=== PATIENT | male | born 1935 | race Caucasian/White ===

== ENCOUNTER 2016-07-25 07:19 | Emergency (ER) | payer MEDICARE, BC ==
[2016-07-25 07:40] VITALS: BP 154/125
--- NOTE | 2016-07-25 08:31 | EDM.PDOC ---
ED HPI GENERAL MEDICAL PROBLEM - General Chief Complaint: Genitourinary Problem Stated Complaint: UTI? Time Seen by Provider: 07/25/16 08:00 Source of Information: Reports: Patient, Family, RN notes reviewed History Limitations: Reports: No Limitations - History of Present Illness INITIAL COMMENTS - FREE TEXT/NARRATIVE: 80-year-old gentleman presents emergency department day complaint of fatigue and concern for urinary tract infection, he has a history of bladder trauma when he was young self caths himself multiple times a day does have a history of frequent urinary tract infections, last urinary tract infection was about 6 weeks ago he was on Bactrim at that time. He has felt chilled denies any other symptoms - Related Data Allergies Allergy/AdvReac Type Severity Reaction Status Date / Time No Known Allergies Allergy Verified 07/25/16 07:40 Home Meds: Home Meds Albuterol [Ventolin HFA] 1 puff INH ASDIRECTED 07/25/16 [History] Aspirin 1 tab PO BEDTIME 07/25/16 [History] Ciprofloxacin HCl [Cipro] 500 mg PO BID #14 tablet 07/25/16 [Rx] Cranberry 1 cap PO DAILY 07/25/16 [History] Fluticasone Propionate [Flovent HFA] 2 puff INH BEDTIME 07/25/16 [History] Losartan [Cozaar] 1 tab PO DAILY 07/25/16 [History] Past Medical History HEENT History: Reports: Cataract, Impaired vision Cardiovascular History: Reports: Hypertension Respiratory History: Reports: Asthma, COPD Genitourinary History: Reports: UTI, recurrent Musculoskeletal History: Reports: Fracture Oncologic (Cancer) History: Reports: Other (see below) Other Oncologic History: skin cancer - Past Surgical History HEENT Surgical History: Reports: Cataract surgery GI Surgical History: Reports: Colostomy, Hernia repair/other, Other (see below) Other GI Surgeries/Procedures: surgery to abdomen and bladder after traumatic accident. Other Male Surgeries/Procedures: bladder issues from traumatic injury Social & Family History - Tobacco Use Smoking Status *Q: Former Smoker Used Tobacco, but Quit: No Tobacco Use Comment: uses smokeless tobacco now - Alcohol Use Days Per Week of Alcohol Use: 7 Number of Drinks Per Day: 2 Total Drinks Per Week: 14 - Recreational Drug Use Recreational Drug Use: No ED ROS GENERAL - Review of Systems Review Of Systems: See Below Constitutional: Reports: Chills HEENT: Reports: No Symptoms Respiratory: Reports: No Symptoms Cardiovascular: Reports: No Symptoms GI/Abdominal: Reports: No Symptoms : Reports: No Symptoms Musculoskeletal: Reports: No Symptoms Skin: Reports: No Symptoms ED EXAM, RENAL/ - Physical Exam Exam: See Below Exam Limited By: No Limitations General Appearance: Alert, WD/WN, No Apparent Distress Respiratory/Chest: No Respiratory Distress GI/Abdominal: Soft, Non-Tender, No Distention, No Mass Back Exam: Full Range of Motion. No: CVA Tenderness (R), CVA Tenderness (L) Course - Vital Signs Last Recorded V/S: Last Vital Signs Temp 97.1 F 07/25/16 07:36 Pulse 71 07/25/16 07:36 Resp 16 07/25/16 07:36 BP 154/125 H 07/25/16 07:36 Pulse Ox 97 07/25/16 07:36 - Orders/Labs/Meds Orders: Active Orders 24 hr Category Date Time Status CULTURE URINE [RM] Urgent Lab 07/25/16 08:21 Uncollected Labs: Laboratory Tests 07/25/16 Range/Units 08:06 Urine Color Yellow Urine Appearance Cloudy Urine pH 6.0 (4.5-8.0) Ur Specific [place] 1.015 (1.008-1.030) Urine Protein Negative (NEGATIVE) mg/dL Urine Glucose (UA) Normal (NEGATIVE) mg/dL Urine Ketones Negative (NEGATIVE) mg/dL Urine Occult Blood Moderate (NEGATIVE) Urine Nitrite Positive H (NEGAITVE) Urine Bilirubin Negative (NEGATIVE) Urine Urobilinogen 4 (NORMAL) mg/dL Ur Leukocyte Esterase Large (NEGATIVE) Urine RBC 0-5 (0-5) Urine WBC Packed H (0-5) Ur Epithelial Cells Few Amorphous Sediment Not seen Urine Bacteria Many Urine Mucus Not seen Departure - Departure Time of Disposition: 08:31 Disposition: Home, Self-Care 01 Condition: good Clinical Impression: UTI, Urinary tract infectious disease - Discharge Information Prescriptions: Ciprofloxacin HCl [Cipro] 500 mg PO BID #14 tablet Forms: ED Department Discharge Additional Instructions: Take full course of antibiotics, Please followup with your primary care provider in 5-7 days if not better, please call return to the emergency department with worsening of symptoms. - My Orders Last 24 Hours: My Active Orders 07/25/16 08:21 CULTURE URINE [RM] Urgent - Assessment/Plan Last 24 Hours: My Active Orders 07/25/16 08:21 CULTURE URINE [RM] Urgent Plan: Assessment Acuity = acute Site and laterality = complicated urinary tract infection in a patient with known history of bladder trauma and recurrent urinary tract infections Etiology = suspicious for bacterial cause Manifestations = chills Location of injury = home Lab values = urinalysis is positive for nitrates and packed WBCs consistent with pyuria cultures pending Plan Elected to treat with ciprofloxacin 500 mg by mouth twice a day x7 days followup with primary care in 5-7 days if no improvement Patient was in agreement with the plan all questions were answered, they were instructed to return to the emergency department or call for worsening symptoms. This note was dictated using [employer] voice recognition software please call with any questions.
== END 2016-07-25 08:45 | disposition home or self-care (01) ==
LOC: JP.ED 07:19
DX: N39.0 Urinary tract infection, site not specified (principal); I10 Essential (primary) hypertension; J45.909 Unspecified asthma, uncomplicated; J44.9 Chronic obstructive pulmonary disease, unspecified; Z85.828 Personal history of other malignant neoplasm of skin; Z98.49 Cataract extraction status, unspecified eye; Z98.890 Other specified postprocedural states; Z87.891 Personal history of nicotine dependence; Z79.82 Long term (current) use of aspirin; Z79.899 Other long term (current) drug therapy
CPT/HCPCS: 81001; 87086; 87088; 87186; 99283; 99284

== ENCOUNTER 2018-08-19 16:24 | Inpatient (IN) | payer MEDICARE, BC ==
[2018-08-19] MEDS ORDERED: Lactated Ringers 1,000 ML IV ONE (17:07)
[2018-08-19] MEDS ORDERED: Acetaminophen 500 MG Tab PO ONE (17:10)
--- NOTE | 2018-08-19 17:20 | EDM.PDOC ---
ED HPI GENERAL MEDICAL PROBLEM - General Chief Complaint: Fever Stated Complaint: possible uti Time Seen by Provider: 08/19/18 17:05 Source of Information: Reports: Patient, Family, RN History Limitations: Reports: Other (minimal old records) - History of Present Illness INITIAL COMMENTS - FREE TEXT/NARRATIVE: 82 yo male who does self-catheterizations presents with his for onset today of fever, weakness, and some sleepiness. He suspect he has a UTI as he has had in the past. No self tx before arrival. No pain. Has an open wound to his low central sacral area that opened up recently and he has been treating by dressing changes. He has no new or worsening pain to this sacral area. Onset: Today Onset Date: 08/19/18 Duration: Hour(s):, Constant Location: Reports: Generalized Quality: Reports: Other (no pain) Severity: Moderate Improves with: Reports: None Worsens with: Reports: Other (? time) Context: Reports: Other (See HPI) Associated Symptoms: Reports: Fever/Chills, Weakness. 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 (see below) (none) - Related Data Allergies Allergy/AdvReac Type Severity Reaction Status Date / Time No Known Allergies Allergy Verified 07/25/16 07:40 Home Meds: Home Meds Albuterol [Ventolin HFA] 1 puff INH ASDIRECTED 07/25/16 [History] Aspirin 1 tab PO BEDTIME 07/25/16 [History] Cranberry 1 cap PO DAILY 07/25/16 [History] Fluticasone Propionate [Flovent HFA] 2 puff INH BEDTIME 07/25/16 [History] Losartan [Cozaar] 1 tab PO DAILY 07/25/16 [History] Diltiazem HCl [Diltiazem 24Hr ER] 120 mg PO DAILY 08/19/18 [History] Past Medical History HEENT History: Reports: Cataract, Impaired Vision, Macular Degeneration Cardiovascular History: Reports: Hypertension Respiratory History: Reports: Asthma, COPD Genitourinary History: Reports: UTI, Recurrent Musculoskeletal History: Reports: Fracture Oncologic (Cancer) History: Reports: Other (See Below) Other Oncologic History: skin cancer - Past Surgical History HEENT Surgical History: Reports: Cataract Surgery GI Surgical History: Reports: Colostomy, Hernia Repair/Other, Other (See Below) Social & Family History - Tobacco Use Smoking Status *Q: Never Smoker - Caffeine Use Caffeine Use: Reports: Coffee - Alcohol Use Days Per Week of Alcohol Use: 7 Number of Drinks Per Day: 3 Total Drinks Per Week: 21 - Recreational Drug Use Recreational Drug Use: No ED ROS GENERAL - Review of Systems Review Of Systems: See Below Constitutional: Reports: Fever, Chills, Malaise, Weakness, Fatigue HEENT: Reports: No Symptoms Respiratory: Reports: No Symptoms Cardiovascular: Reports: No Symptoms Endocrine: Reports: No Symptoms GI/Abdominal: Reports: No Symptoms : Reports: No Symptoms Musculoskeletal: Reports: No Symptoms Skin: Reports: Wound (mid sacral area posteriorly-not new) Neurological: Reports: No Symptoms ED EXAM, SEPSIS - Physical Exam Exam: See Below Exam Limited By: No Limitations General Appearance: Alert, WD/WN, No Apparent Distress Eye Exam: Bilateral Eye: Normal Inspection Ears: Normal External Exam, Normal Canal, Hearing Grossly Normal, Normal TMs Nose: Normal Inspection, No Blood Throat/Mouth: Normal Inspection, Normal Lips, Normal Oropharynx, Normal Voice, No Airway Compromise Head: Atraumatic, Normocephalic Neck: Normal Inspection Respiratory/Chest: No Respiratory Distress, Lungs Clear, Normal Breath Sounds, No Accessory Muscle Use Cardiovascular: Regular Rate, Rhythm, No Edema, Tachycardia GI/Abdominal Exam: Normal Bowel Sounds, Soft, Non-Tender, No Distention Back: Normal Inspection. No: CVA Tenderness (R), CVA Tenderness (L) Extremities: Normal Inspection, Normal Range of Motion, Non-Tender, No Pedal Edema Neurological: Alert, Oriented, CN II-XII Intact, Normal Cognition, No Motor/ Sensory Deficits Psychiatric: Normal Affect, Normal Mood Skin: Warm, Dry, Normal Color, No Rash, Wound/Incision (draining chronic wound to mid sacrum, no surrounding redness noted. ) Lymphatic: Bilateral: No Adenopathy Course - Vital Signs Last Recorded V/S: Last Vital Signs Temp 38.9 C H 08/19/18 16:45 Pulse 112 H 08/19/18 16:45 Resp 16 08/19/18 16:45 BP 136/75 08/19/18 16:45 Pulse Ox 95 08/19/18 16:45 - Orders/Labs/Meds Orders: Active Orders 24 hr Category Date Time Status BASIC METABOLIC PANEL,BMP [CHEM] Stat Lab 08/19/18 17:22 Results CULTURE BLOOD [BC] Stat Lab 08/19/18 17:22 Received CULTURE BLOOD [BC] Stat Lab 08/19/18 17:46 Received LACTIC ACID [CHEM] Stat Lab 08/19/18 17:22 Received PROCALCITONIN [CHEM] Stat Lab 08/19/18 17:22 Results Lactated Ringers [Ringers, Lactated] 1,000 ml Med 08/19/18 17:07 Active IV BOLUS Levofloxacin/Dextrose 5%-Water [Levaquin in D5W 750 MG/ Med 08/19/18 17:47 Active 150 ML] 750 mg Premix Bag 1 bag IV ONETIME Medication Orders Lactated Ringer's (Ringers, Lactated) 1,000 mls @ 1,000 mls/hr IV BOLUS ONE Stop: 08/19/18 18:06 Last Admin: 08/19/18 17:28 Dose: 1,000 mls/hr Levofloxacin/Dextrose 750 mg/ (Premix) 150 mls @ 100 mls/hr IV ONETIME ONE Stop: 08/19/18 19:16 Labs: Laboratory Tests 08/19/18 08/19/18 08/19/18 Range/Units 17:22 17:22 17:22 WBC 19.2 H (4.5-11.0) K/uL RBC 4.52 (4.30-5.90) M/uL Hgb 14.4 (12.0-15.0) g/dL Hct 44.6 (40.0-54.0) % MCV 99 H (80-98) fL MCH 32 H (27-31) pg MCHC 32 (32-36) % Plt Count 135 L (150-400) K/uL Sodium 137 L (140-148) mmol/L Potassium 4.2 (3.6-5.2) mmol/L Chloride 102 (100-108) mmol/L Carbon Dioxide 24 (21-32) mmol/L Anion Gap 15.2 H (5.0-14.0) mmol/L BUN 27 H (7-18) mg/dL Creatinine 1.4 H (0.8-1.3) mg/dL Est Cr Clr Drug Dosing 44.65 mL/min Estimated GFR (MDRD) 49 L (>60) Glucose 106 (74-106) mg/dL Calcium 9.3 (8.5-10.1) mg/dL Urine Color Yellow Urine Appearance Cloudy Urine pH 5.0 (4.5-8.0) Ur Specific [place] 1.015 (1.008-1.030) Urine Protein Negative (NEGATIVE) mg/dL Urine Glucose (UA) Normal (NEGATIVE) mg/dL Urine Ketones 50 H (NEGATIVE) mg/dL Urine Occult Blood Trace (NEGATIVE) Urine Nitrite Positive H (NEGAITVE) Urine Bilirubin Small (NEGATIVE) Urine Urobilinogen Normal (NORMAL) mg/dL Ur Leukocyte Esterase Moderate (NEGATIVE) Urine RBC 5-10 H (0-5) Urine WBC Semi-packed H (0-5) Ur Epithelial Cells Moderate Amorphous Sediment Few Urine Bacteria Few Urine Mucus Few Urine Other See note Meds: Medications Generic Name Dose Route Start Last Admin Trade Name Freq PRN Reason Stop Dose Admin Lactated Ringer's 1,000 mls @ 1,000 mls/hr 08/19/18 17:07 08/19/18 17:28 Ringers, Lactated IV 08/19/18 18:06 1,000 mls/hr BOLUS ONE Administration Levofloxacin/Dextrose 750 mg/ 150 mls @ 100 mls/hr 08/19/18 17:47 Premix IV 08/19/18 19:16 ONETIME ONE Discontinued Medications Generic Name Dose Route Start Last Admin Trade Name Freq PRN Reason Stop Dose Admin Acetaminophen 1,000 mg 08/19/18 17:10 08/19/18 17:28 Tylenol Extra Strength PO 08/19/18 17:11 1,000 mg ONETIME ONE Administration Departure - Departure Time of Disposition: 18:15 Disposition: Admitted As Inpatient 66 Condition: Fair Clinical Impression: UTI (urinary tract infection) Qualifiers: Urinary tract infection type: catheter-associated UTI Indwelling urinary catheter type: unspecified Encounter type: initial encounter Qualified Code(s): T83.511A - Infection and inflammatory reaction due to indwelling urethral catheter, initial encounter; N39.0 - Urinary tract infection, site not specified Sepsis Qualifiers: Sepsis type: sepsis due to unspecified organism Qualified Code(s): A41.9 - Sepsis, unspecified organism - Discharge Information *PRESCRIPTION DRUG MONITORING PROGRAM REVIEWED*: No *COPY OF PRESCRIPTION DRUG MONITORING REPORT IN PATIENT MICHAEL: No Referrals: PCP,None [Primary Care Provider] - Forms: ED Department Discharge - My Orders Last 24 Hours: My Active Orders 08/19/18 17:07 Lactated Ringers [Ringers, Lactated] 1,000 ml IV BOLUS 08/19/18 17:22 BASIC METABOLIC PANEL,BMP [CHEM] Stat CULTURE BLOOD [BC] Stat LACTIC ACID [CHEM] Stat PROCALCITONIN [CHEM] Stat 08/19/18 17:46 CULTURE BLOOD [BC] Stat 08/19/18 17:47 Levofloxacin/Dextrose 5%-Water [Levaquin in D5W 750 MG/150 ML] 750 mg Premix Bag 1 bag IV ONETIME - Assessment/Plan Last 24 Hours: My Active Orders 08/19/18 17:07 Lactated Ringers [Ringers, Lactated] 1,000 ml IV BOLUS 08/19/18 17:22 BASIC METABOLIC PANEL,BMP [CHEM] Stat CULTURE BLOOD [BC] Stat LACTIC ACID [CHEM] Stat PROCALCITONIN [CHEM] Stat 08/19/18 17:46 CULTURE BLOOD [BC] Stat 08/19/18 17:47 Levofloxacin/Dextrose 5%-Water [Levaquin in D5W 750 MG/150 ML] 750 mg Premix Bag 1 bag IV ONETIME
[2018-08-19] MEDS ORDERED: Levofloxacin/Dextrose 5%-Water 750 MG in Premix Bag 1 BAG IV ONE (17:47)
[2018-08-19] MEDS ORDERED: Sodium Chloride 0.9% 1,000 ML IV SCH (18:45)
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
[2018-08-19] MEDS ORDERED: Morphine 2 MG/ML Syringe IVPUSH PRN (19:54)
[2018-08-19] MEDS ORDERED: oxyCODONE 5 MG Tab PO PRN (19:54)
[2018-08-19] MEDS ORDERED: Ondansetron 4 MG/2 ML SDV IV PRN (19:54)
[2018-08-19] MEDS ORDERED: Albuterol 0.083% 2.5 MG/3 ML Neb Soln NEB PRN (19:54)
[2018-08-19] MEDS ORDERED: Albuterol 8 GM Inhaler INH SCH (19:54)
[2018-08-19] MEDS ORDERED: Ondansetron 4 MG Tab.DIS PO PRN (19:54)
[2018-08-19] MEDS ORDERED: Bisacodyl 5 MG Tab PO PRN (19:54)
[2018-08-19] MEDS ORDERED: Docusate Sodium 100 MG Cap PO PRN (19:54)
[2018-08-19] MEDS ORDERED: Melatonin 3 MG Tab PO PRN (19:54)
[2018-08-19] MEDS ORDERED: Levofloxacin/Dextrose 5%-Water 500 MG in Premix Bag 1 BAG IV ONE (19:54)
[2018-08-19] MEDS: Diltiazem 120 MG Cap.CD PO SCH (21:26)
[2018-08-19] MEDS: Mometasone Furoate HFA 100mcg/Puff 13 GM Inhaler INH SCH ×3 (21:26→22:48)
[2018-08-19] MEDS: Acetaminophen 325 MG Tab PO PRN (21:27)
[2018-08-19] MEDS: Losartan 50 MG Tab PO SCH (21:27)
[2018-08-19] MEDS: Aspirin 81 MG Tab.Chew PO SCH (21:27)
[2018-08-19] MEDS: Pantoprazole 40 MG Tab.CR PO SCH (21:27)
[2018-08-19] MEDS ORDERED: Ibuprofen 600 MG Tab PO PRN (21:40)
[2018-08-19] MEDS: Sodium Chloride 0.9% 1,000 ML IV SCH (23:01)
[2018-08-20] MEDS: Sodium Chloride 0.9% 1,000 ML IV SCH ×4 (07:05→22:46)
[2018-08-20] MEDS: Mometasone Furoate HFA 100mcg/Puff 13 GM Inhaler INH SCH ×2 (08:14→21:06)
[2018-08-20] MEDS: Diltiazem 120 MG Cap.CD PO SCH (08:40)
[2018-08-20] MEDS: Acetaminophen 325 MG Tab PO PRN (14:54)
--- NOTE | 2018-08-20 15:02 | PCM.PN ---
- General Info Date of Service: 08/20/18 Subjective Update: There were no acute events overnight following admission. Temperature curve has improved. Tachycardia has resolved. He feels weak and tired but otherwise feels okay. Urine culture pending. Appetite good this morning. Tolerating antibiotics. No abdominal pain. Functional Status: Reports: Pain Controlled, Tolerating Diet - Review of Systems General: Reports: Fever, Weakness - Patient Data Vitals - Most Recent: Last Vital Signs Temp 37.2 C 08/20/18 14:52 Pulse 67 08/20/18 14:52 Resp 13 08/20/18 14:52 BP 146/56 H 08/20/18 14:52 Pulse Ox 97 08/20/18 14:52 Weight - Most Recent: 86.183 kg I&O - Last 24 Hours: Intake & Output 08/19/18 08/20/18 08/20/18 22:59 06:59 14:59 Intake Total 1970 Output Total 650 825 Balance 1320 -825 Lab Results Last 24 Hours: Laboratory Results - last 24 hr 08/19/18 08/19/18 08/19/18 Range/Units 17:22 17:22 17:22 WBC 19.2 H (4.5-11.0) K/uL RBC 4.52 (4.30-5.90) M/uL Hgb 14.4 (12.0-15.0) g/dL Hct 44.6 (40.0-54.0) % MCV 99 H (80-98) fL MCH 32 H (27-31) pg MCHC 32 (32-36) % Plt Count 135 L (150-400) K/uL Neut % (Auto) (36-66) % Lymph % (Auto) (24-44) % [place] % (Auto) (2-6) % Eos % (Auto) (2-4) % Baso % (Auto) (0-1) % Sodium 137 L (140-148) mmol/L Potassium 4.2 (3.6-5.2) mmol/L Chloride 102 (100-108) mmol/L Carbon Dioxide 24 (21-32) mmol/L Anion Gap 15.2 H (5.0-14.0) mmol/L BUN 27 H (7-18) mg/dL Creatinine 1.4 H (0.8-1.3) mg/dL Est Cr Clr Drug Dosing 44.65 mL/min Estimated GFR (MDRD) 49 L (>60) Glucose 106 (74-106) mg/dL Lactic Acid (0.4-2.0) mmol/L Calcium 9.3 (8.5-10.1) mg/dL Procalcitonin 0.17 ng/mL Urine Color Yellow Urine Appearance Cloudy Urine pH 5.0 (4.5-8.0) Ur Specific [place] 1.015 (1.008-1.030) Urine Protein Negative (NEGATIVE) mg/dL Urine Glucose (UA) Normal (NEGATIVE) mg/dL Urine Ketones 50 H (NEGATIVE) mg/dL Urine Occult Blood Trace (NEGATIVE) Urine Nitrite Positive H (NEGAITVE) Urine Bilirubin Small (NEGATIVE) Urine Urobilinogen Normal (NORMAL) mg/dL Ur Leukocyte Esterase Moderate (NEGATIVE) Urine RBC 5-10 H (0-5) Urine WBC Semi-packed H (0-5) Ur Epithelial Cells Moderate Amorphous Sediment Few Urine Bacteria Few Urine Mucus Few Urine Other See note 08/19/18 08/20/18 08/20/18 Range/Units 17:22 05:00 05:00 WBC 15.6 H (4.5-11.0) K/uL RBC 3.90 L (4.30-5.90) M/uL Hgb 12.4 D (12.0-15.0) g/dL Hct 38.9 L (40.0-54.0) % MCV 100 H (80-98) fL MCH 32 H (27-31) pg MCHC 32 (32-36) % Plt Count 96 L (150-400) K/uL Neut % (Auto) 80 H (36-66) % Lymph % (Auto) 11 L (24-44) % [place] % (Auto) 9 H (2-6) % Eos % (Auto) 0 L (2-4) % Baso % (Auto) 0 (0-1) % Sodium 139 L (140-148) mmol/L Potassium 4.2 (3.6-5.2) mmol/L Chloride 106 (100-108) mmol/L Carbon Dioxide 25 (21-32) mmol/L Anion Gap 12.2 (5.0-14.0) mmol/L BUN 23 H (7-18) mg/dL Creatinine 1.2 (0.8-1.3) mg/dL Est Cr Clr Drug Dosing 52.17 mL/min Estimated GFR (MDRD) 58 L (>60) Glucose 112 H (74-106) mg/dL Lactic Acid 1.6 (0.4-2.0) mmol/L Calcium 8.5 (8.5-10.1) mg/dL Procalcitonin ng/mL Urine Color Urine Appearance Urine pH (4.5-8.0) Ur Specific [place] (1.008-1.030) Urine Protein (NEGATIVE) mg/dL Urine Glucose (UA) (NEGATIVE) mg/dL Urine Ketones (NEGATIVE) mg/dL Urine Occult Blood (NEGATIVE) Urine Nitrite (NEGAITVE) Urine Bilirubin (NEGATIVE) Urine Urobilinogen (NORMAL) mg/dL Ur Leukocyte Esterase (NEGATIVE) Urine RBC (0-5) Urine WBC (0-5) Ur Epithelial Cells Amorphous Sediment Urine Bacteria Urine Mucus Urine Other Med Orders - Current: Current Medications Acetaminophen (Tylenol) 650 mg PO Q4H PRN PRN Reason: Pain (Mild 1-3)/fever Last Admin: 08/20/18 14:54 Dose: 650 mg Albuterol (Proventil Neb Soln) 2.5 mg NEB Q4H PRN PRN Reason: Shortness Of Breath/wheezing Albuterol (Ventolin Hfa) 0 gm INH ASDIRECTED [facility] Aspirin (Aspirin) 81 mg PO BEDTIME [facility] Last Admin: 08/19/18 21:27 Dose: 81 mg Bisacodyl (Dulcolax) 5 mg PO DAILY PRN PRN Reason: Constipation Diltiazem HCl (Cardizem Cd) 120 mg PO DAILY [facility] Last Admin: 08/20/18 08:40 Dose: 120 mg Docusate Sodium (Colace) 100 mg PO BID PRN PRN Reason: Constipation Sodium Chloride (Normal Saline) 1,000 mls @ 125 mls/hr IV ASDIRECTED [facility] Last Admin: 08/20/18 14:43 Dose: 125 mls/hr Levofloxacin/Dextrose 500 mg/ (Premix) 100 mls @ 100 mls/hr IV Q24H [facility] Ibuprofen (Motrin) 600 mg PO Q6H PRN PRN Reason: Fever Last Admin: 08/19/18 22:28 Dose: 600 mg Losartan Potassium (Cozaar) 100 mg PO BEDTIME [facility] Last Admin: 08/19/18 21:27 Dose: 100 mg Melatonin (Melatonin) 6 mg PO BEDTIME PRN PRN Reason: Insomnia Mometasone Furoate (Asmanex Hfa 100mcg) 0 gm INH BIDRT [facility] Last Admin: 08/20/18 08:14 Dose: 1 puff Morphine Sulfate (Morphine) 2 mg IVPUSH Q2H PRN PRN Reason: Pain (severe 7-10) Ondansetron HCl (Zofran Odt) 4 mg PO Q6H PRN PRN Reason: Nausea able to take PO Ondansetron HCl (Zofran) 4 mg IV Q4H PRN PRN Reason: Nausea/Vomiting Oxycodone HCl (Oxycodone) 5 mg PO Q4H PRN PRN Reason: Pain (moderate 4-6) Pantoprazole Sodium (Protonix) 40 mg PO BEDTIME [facility] Last Admin: 08/19/18 21:27 Dose: 40 mg Discontinued Medications Acetaminophen (Tylenol Extra Strength) 1,000 mg PO ONETIME ONE Stop: 08/19/18 17:11 Last Admin: 08/19/18 17:28 Dose: 1,000 mg Lactated Ringer's (Ringers, Lactated) 1,000 mls @ 1,000 mls/hr IV BOLUS ONE Stop: 08/19/18 18:06 Last Admin: 08/19/18 17:28 Dose: 1,000 mls/hr Levofloxacin/Dextrose 750 mg/ (Premix) 150 mls @ 100 mls/hr IV ONETIME ONE Stop: 08/19/18 19:16 Last Admin: 08/19/18 18:28 Dose: 100 mls/hr Sodium Chloride (Normal Saline) 1,000 mls @ 500 mls/hr IV ASDIRECTED [facility] Last Admin: 08/19/18 18:54 Dose: 500 mls/hr Levofloxacin/Dextrose 500 mg/ (Premix) 100 mls @ 100 mls/hr IV ONETIME ONE Stop: 08/19/18 20:53 Last Admin: 08/19/18 22:24 Dose: Not Given Levofloxacin/Dextrose 250 mg/ (Premix) 50 mls @ 50 mls/hr IV Q24H [facility] Mometasone Furoate (Asmanex Hfa 100mcg) 0 gm INH BID KRISTY Last Admin: 08/19/18 22:48 Dose: 1 inhalation - Exam Quality Assessment: No: Supplemental Oxygen General: Alert, Oriented, Cooperative, No Acute Distress Lungs: Normal Respiratory Effort Cardiovascular: Regular Rate, Regular Rhythm GI/Abdominal Exam: Soft, No Distention Extremities: No Pedal Edema Psy/Mental Status: Alert, Normal Affect - Problem List Review Problem List Initiated/Reviewed/Updated: Yes - My Orders Last 24 Hours: My Active Orders 08/20/18 09:00 Dietary Supplements [RC] BIDMEALS 08/20/18 09:48 Discontinue Telemetry Monitoring [Cardiac Monitoring Discontinue] [RC] Click to Edit 08/20/18 18:00 Levofloxacin/Dextrose 5%-Water [Levaquin in D5W 500 MG/100 ML] 500 mg Premix Bag 1 bag IV Q24H 08/21/18 05:00 BASIC METABOLIC PANEL,BMP [CHEM] Timed CBC W/O DIFF,HEMOGRAM [HEME] Timed (1) - Plan Plan:: ASSESSMENT AND PLAN - Complicated urinary tract infection with sepsis - patient does self catheterize at home. Sepsis has resolved. Urine culture pending. White blood cell count trending down. -Continue levofloxacin -Gentle fluids -Tylenol 650mg po every 4 hours prn fever -Follow-up cultures Alcohol dependence - no evidence for alcohol withdrawal. -Evening Aleshia Asthma with COPD - no issues. -order Inhalers as directed Essential hypertension - stable. -order medication for this evening Sacral ulcer chronic - he has had extensive work up by [facility], has follow appointment next week August 25, 2018. -daily dry dressing Maintenance issues - - DVT prophylaxis - SCD - GI prophylaxis - Protonix 40mg po daily - Nutrition - regular - Rios catheter - placed in the emergency room to facilitate hydration and intake and output monitoring in the setting of sepsis. Anticipate removal in the morning. Disposition - I would anticipate discharge home after the hospital stay Minh Rodrigues M.D.
[2018-08-20] MEDS ORDERED: Levofloxacin/Dextrose 5%-Water 500 MG in Premix Bag 1 BAG IV SCH (18:00)
[2018-08-20] MEDS ORDERED: Levofloxacin/Dextrose 5%-Water 250 MG in Premix Bag 1 BAG IV SCH (18:00)
[2018-08-20] MEDS: Aspirin 81 MG Tab.Chew PO SCH (21:08)
[2018-08-20] MEDS: Losartan 50 MG Tab PO SCH (21:08)
[2018-08-20] MEDS: Pantoprazole 40 MG Tab.CR PO SCH (21:09)
[2018-08-21] MEDS: Mometasone Furoate HFA 100mcg/Puff 13 GM Inhaler INH SCH (07:38)
[2018-08-21] MEDS: Diltiazem 120 MG Cap.CD PO SCH (08:52)
[2018-08-21 08:53] VITALS: BP 132/70
--- NOTE | 2018-08-21 09:08 | PCM.DCSUM1 ---
Discharge Summary - Hospital Course Brief History: 82-year-old male with history of lower urinary tract obstruction requiring self-catheterization who presented with weakness and fevers. He was admitted for management of a urinary tract infection with sepsis. Diagnosis: Stroke: No - Discharge Data Discharge Date: 08/21/18 Discharge Disposition: Home, Self-Care 01 Condition: Good - Discharge Diagnosis/Problem(s) (1) UTI (urinary tract infection) SNOMED Code(s): 01658445 ICD Code: N39.0 - URINARY TRACT INFECTION, SITE NOT SPECIFIED Status: Acute Priority: High Qualifiers: Urinary tract infection type: catheter-associated UTI Indwelling urinary catheter type: unspecified Encounter type: initial encounter Qualified Code( s): T83.511A - Infection and inflammatory reaction due to indwelling urethral catheter, initial encounter; N39.0 - Urinary tract infection, site not specified (2) Sepsis SNOMED Code(s): 46876863 ICD Code: A41.9 - SEPSIS, UNSPECIFIED ORGANISM Status: Acute Priority: High Qualifiers: Sepsis type: sepsis due to unspecified organism Qualified Code(s): A41.9 - Sepsis, unspecified organism (3) CKD (chronic kidney disease), stage III SNOMED Code(s): 164212801 ICD Code: N18.3 - CHRONIC KIDNEY DISEASE, STAGE 3 (MODERATE) Status: Chronic - Patient Summary/Data Hospital Course: Fabrice presented to the emergency room with weakness and fevers. Workup in the emergency room suggested a complicated urinary tract infection and early sepsis with tachycardia and weakness. Cultures were obtained and he was started on ceftriaxone and admitted to the hospital for further management. He received IV fluids in the emergency room and overnight following admission. Because he does straight catheter at home several times a day a Rios catheter was placed to help ease his burden while hospitalized and to allow for more aggressive hydration. Initially he had a fairly high fever in the emergency room but temperatures have been acceptable since the time of admission with no recurrence of fevers. His tachycardia has resolved. Strength has been steadily improving throughout the hospital stay. Appetite has been stable and acceptable. White blood cell count was significantly elevated at the time of admission but this has been trending down as well. Urine cultures growing a gram -negative david but identification is pending at this time. Blood cultures are negative so far. Patient feels well at this time and is interested in going home. I believe he is safe for outpatient management at this point. He will need 6 additional days of antibiotic therapy as outlined in the medication section. Follow-up can be as needed if symptoms do not continue to improve or if they get worse. - Patient Instructions Diet: Regular Diet as Tolerated Activity: As Tolerated Showering/Bathing: May Shower Notify Provider of: Fever, Increased Pain, Nausea and/or Vomiting Other/Special Instructions: 1. You were in the hospital for management of a urinary tract infection complicated by sepsis syndrome. Your condition has been improving with antibiotic therapy. I do recommend ongoing antibiotic therapy with cefdinir (Omnicef). You should take 300 mg twice daily with food for 12 more doses. Your next dose is due tonight. You should continue to self catheterize as previously instructed. 2. Continue your other home medications as previously prescribed. 3. Seek medical attention if you develop fever greater than 101, have severe abdominal pain, persistent vomiting or severe diarrhea. - Discharge Plan *PRESCRIPTION DRUG MONITORING PROGRAM REVIEWED*: No *COPY OF PRESCRIPTION DRUG MONITORING REPORT IN PATIENT MICHAEL: No Prescriptions/Med Rec: Cefdinir 300 mg PO BID #12 capsule Home Medications: Home Meds Albuterol [Ventolin HFA] 1 puff INH ASDIRECTED 07/25/16 [History] Aspirin 1 tab PO BEDTIME 07/25/16 [History] Fluticasone Propionate [Flovent HFA] 2 puff INH BEDTIME 07/25/16 [History] Losartan [Cozaar] 1 tab PO DAILY 07/25/16 [History] Diltiazem HCl [Diltiazem 24Hr ER] 120 mg PO DAILY 08/19/18 [History] Cefdinir 300 mg PO BID #12 capsule 08/21/18 [Rx] Oxygen Therapy Mode: Room Air Patient Handouts: Cefdinir capsules, Urinary Tract Infection, Adult Referrals: PCP,None [Primary Care Provider] - (follow up with your primary care if symptoms do not continue to get better or if they get worse) - Discharge Summary/Plan Comment DC Time >30 min.: No - Patient Data Vitals - Most Recent: Last Vital Signs Temp 36.8 C 08/21/18 07:00 Pulse 74 08/21/18 08:52 Resp 16 08/21/18 07:00 BP 132/70 08/21/18 08:52 Pulse Ox 98 08/21/18 07:00 Weight - Most Recent: 86.183 kg I&O - Last 24 hours: Intake & Output 08/20/18 08/21/18 08/21/18 22:59 06:59 14:59 Intake Total 2545 550 Output Total 125 700 160 Balance 2420 -150 -160 Lab Results - Last 24 hrs: Laboratory Results - last 24 hr 08/21/18 08/21/18 Range/Units 05:43 05:43 WBC 12.7 H (4.5-11.0) K/uL RBC 3.86 L (4.30-5.90) M/uL Hgb 12.2 (12.0-15.0) g/dL Hct 38.7 L (40.0-54.0) % MCV 100 H (80-98) fL MCH 32 H (27-31) pg MCHC 32 (32-36) % Plt Count 95 L (150-400) K/uL Sodium 137 L (140-148) mmol/L Potassium 3.9 (3.6-5.2) mmol/L Chloride 106 (100-108) mmol/L Carbon Dioxide 24 (21-32) mmol/L Anion Gap 10.9 (5.0-14.0) mmol/L BUN 20 H (7-18) mg/dL Creatinine 1.1 (0.8-1.3) mg/dL Est Cr Clr Drug Dosing 56.91 mL/min Estimated GFR (MDRD) > 60 (>60) Glucose 110 H (74-106) mg/dL Calcium 8.7 (8.5-10.1) mg/dL JENNIFFER Results - Last 24 hrs: Microbiology 08/19/18 18:41 Urine Culture - Preliminary Urine, Catheterized 08/19/18 17:46 Aerobic Blood Culture - Preliminary Blood - Venous NO GROWTH AFTER 1 DAY Anaerobic Blood Culture - Preliminary NO GROWTH AFTER 1 DAY 08/19/18 17:22 Aerobic Blood Culture - Preliminary Blood - Venous NO GROWTH AFTER 1 DAY Anaerobic Blood Culture - Preliminary NO GROWTH AFTER 1 DAY Med Orders - Current: Current Medications Acetaminophen (Tylenol) 650 mg PO Q4H PRN PRN Reason: Pain (Mild 1-3)/fever Last Admin: 08/20/18 14:54 Dose: 650 mg Albuterol (Proventil Neb Soln) 2.5 mg NEB Q4H PRN PRN Reason: Shortness Of Breath/wheezing Albuterol (Ventolin Hfa) 0 gm INH ASDIRECTED [facility] Aspirin (Aspirin) 81 mg PO BEDTIME [facility] Last Admin: 08/20/18 21:08 Dose: 81 mg Bisacodyl (Dulcolax) 5 mg PO DAILY PRN PRN Reason: Constipation Diltiazem HCl (Cardizem Cd) 120 mg PO DAILY [facility] Last Admin: 08/21/18 08:52 Dose: 120 mg Docusate Sodium (Colace) 100 mg PO BID PRN PRN Reason: Constipation Levofloxacin/Dextrose 500 mg/ (Premix) 100 mls @ 100 mls/hr IV Q24H [facility] Last Admin: 08/20/18 18:45 Dose: 100 mls/hr Ibuprofen (Motrin) 600 mg PO Q6H PRN PRN Reason: Fever Last Admin: 08/19/18 22:28 Dose: 600 mg Losartan Potassium (Cozaar) 100 mg PO BEDTIME [facility] Last Admin: 08/20/18 21:08 Dose: 100 mg Melatonin (Melatonin) 6 mg PO BEDTIME PRN PRN Reason: Insomnia Mometasone Furoate (Asmanex Hfa 100mcg) 0 gm INH BIDRT [facility] Last Admin: 08/21/18 07:38 Dose: 1 puff Morphine Sulfate (Morphine) 2 mg IVPUSH Q2H PRN PRN Reason: Pain (severe 7-10) Ondansetron HCl (Zofran Odt) 4 mg PO Q6H PRN PRN Reason: Nausea able to take PO Ondansetron HCl (Zofran) 4 mg IV Q4H PRN PRN Reason: Nausea/Vomiting Oxycodone HCl (Oxycodone) 5 mg PO Q4H PRN PRN Reason: Pain (moderate 4-6) Pantoprazole Sodium (Protonix) 40 mg PO BEDTIME [facility] Last Admin: 08/20/18 21:09 Dose: 40 mg Discontinued Medications Acetaminophen (Tylenol Extra Strength) 1,000 mg PO ONETIME ONE Stop: 08/19/18 17:11 Last Admin: 08/19/18 17:28 Dose: 1,000 mg Lactated Ringer's (Ringers, Lactated) 1,000 mls @ 1,000 mls/hr IV BOLUS ONE Stop: 08/19/18 18:06 Last Admin: 08/19/18 17:28 Dose: 1,000 mls/hr Levofloxacin/Dextrose 750 mg/ (Premix) 150 mls @ 100 mls/hr IV ONETIME ONE Stop: 08/19/18 19:16 Last Admin: 08/19/18 18:28 Dose: 100 mls/hr Sodium Chloride (Normal Saline) 1,000 mls @ 500 mls/hr IV ASDIRECTED [facility] Last Admin: 08/19/18 18:54 Dose: 500 mls/hr Levofloxacin/Dextrose 500 mg/ (Premix) 100 mls @ 100 mls/hr IV ONETIME ONE Stop: 08/19/18 20:53 Last Admin: 08/19/18 22:24 Dose: Not Given Sodium Chloride (Normal Saline) 1,000 mls @ 125 mls/hr IV ASDIRECTED [facility] Last Infusion: 08/20/18 22:46 Dose: Infused Levofloxacin/Dextrose 250 mg/ (Premix) 50 mls @ 50 mls/hr IV Q24H [facility] Mometasone Furoate (Asmanex Hfa 100mcg) 0 gm INH BID [facility] Last Admin: 08/19/18 22:48 Dose: 1 inhalation - Exam Quality Assessment: Denies: Supplemental Oxygen General: Reports: Alert, Oriented, Cooperative, No Acute Distress Lungs: Reports: Normal Respiratory Effort Cardiovascular: Reports: Regular Rate, Regular Rhythm GI/Abdominal Exam: Soft, No Distention Extremities: No Pedal Edema Psy/Mental Status: Reports: Alert, Normal Affect
== END 2018-08-21 09:37 | disposition home or self-care (01) | DRG 698 ==
LOC: JP.ED 16:24 → JP.ICU 19:14
PROVIDERS: ADMIT Internal Medicine; ATTEND Internal Medicine
DX: T83.518A Infection and inflammatory reaction due to other urinary catheter, initial encounter (principal); A41.59 Other Gram-negative sepsis; A41.50 Gram-negative sepsis, unspecified; N39.0 Urinary tract infection, site not specified; Z66 Do not resuscitate; I12.9 Hypertensive chronic kidney disease with stage 1 through stage 4 chronic kidney disease, or unspecified chronic kidney disease; N18.3 Chronic kidney disease, stage 3 (moderate); R53.1 Weakness; R50.9 Fever, unspecified; J44.9 Chronic obstructive pulmonary disease, unspecified; Z87.440 Personal history of urinary (tract) infections; L89.159 Pressure ulcer of sacral region, unspecified stage; F10.20 Alcohol dependence, uncomplicated; H54.7 Unspecified visual loss; H35.30 Unspecified macular degeneration; Z85.828 Personal history of other malignant neoplasm of skin; Z79.82 Long term (current) use of aspirin
CPT/HCPCS: 36415; 80048; 81001; 83605; 84145; 85027; 87040 ×2; 87086; 87088; 87186; 96361; 96365; 99284; A9270; J1956; J7030; J7120; 51702; 85025; 94640; C9399

== ENCOUNTER 2018-10-09 12:17 | Emergency (ER) | payer MEDICARE, BC ==
--- NOTE | 2018-10-09 13:14 | EDM.PDOC ---
ED HPI GENERAL MEDICAL PROBLEM - General Chief Complaint: Genitourinary Problem Stated Complaint: UTI Time Seen by Provider: 10/09/18 13:00 Source of Information: Reports: Patient - History of Present Illness INITIAL COMMENTS - FREE TEXT/NARRATIVE: + 82 years old male patient presented with chief complaint of changing of the color of his urine. Became cloudy. History of recurrent UTI. Denies any burning frequency or urgency. Denies any blood in the urine or stool. Denies any nausea or vomiting. Denies abdominal pain diarrhea or constipation. Denies any urinary symptom. Onset: Today - Related Data Allergies Allergy/AdvReac Type Severity Reaction Status Date / Time No Known Allergies Allergy Verified 10/09/18 12:29 Home Meds: Home Meds Albuterol [Ventolin HFA] 1 puff INH ASDIRECTED 07/25/16 [History] Aspirin 1 tab PO BEDTIME 07/25/16 [History] Fluticasone Propionate [Flovent HFA] 2 puff INH BEDTIME 07/25/16 [History] Losartan [Cozaar] 1 tab PO DAILY 07/25/16 [History] Diltiazem HCl [Diltiazem 24Hr ER] 120 mg PO DAILY 08/19/18 [History] Past Medical History HEENT History: Reports: Cataract, Impaired Vision, Macular Degeneration Cardiovascular History: Reports: Hypertension Respiratory History: Reports: Asthma, COPD Genitourinary History: Reports: UTI, Recurrent Other Genitourinary History: self caths Musculoskeletal History: Reports: Fracture Oncologic (Cancer) History: Reports: Other (See Below) Other Oncologic History: skin cancer - Past Surgical History HEENT Surgical History: Reports: Cataract Surgery GI Surgical History: Reports: Colostomy, Hernia Repair/Other, Other (See Below) Social & Family History - Tobacco Use Smoking Status *Q: Current Every Day Smoker Years of Tobacco use: 40 Packs/Tins Daily: 0.2 - Caffeine Use Caffeine Use: Reports: Coffee - Living Situation & Occupation Living situation: Reports: , with Family Occupation: Retired (lives with Elizabeth in [place], [place]., they have a Cabin [address] in [place]. 4 children: one in [place], 2 Sons close by, and one Daughter they don't have contact with who lives south of the [facility].) ED ROS GENERAL - Review of Systems Review Of Systems: ROS reveals no pertinent complaints other than HPI. ED EXAM, RENAL/ - Physical Exam Exam: See Below Exam Limited By: No Limitations Ears: Normal External Exam Head: Atraumatic, Normocephalic Neck: Normal Inspection Respiratory/Chest: No Respiratory Distress Cardiovascular: Normal Peripheral Pulses, Regular Rate, Rhythm GI/Abdominal: Normal Bowel Sounds, Non-Tender, No Organomegaly, No Distention. No: Guarding, Rigid, Rebound, Tender (Chronic back wound. Mild erythema, no swelling no discharge.) (Male) Exam: No Hernia Course - Vital Signs Last Recorded V/S: Last Vital Signs Temp 38.2 C H 10/09/18 12:36 Pulse 89 10/09/18 12:36 Resp 14 10/09/18 12:36 BP 154/77 H 10/09/18 12:36 Pulse Ox 98 10/09/18 12:36 - Orders/Labs/Meds Orders: Active Orders 24 hr Category Date Time Status CULTURE URINE [RM] Stat Lab 10/09/18 13:06 Ordered Acetaminophen [Tylenol] Med 10/09/18 13:19 Once 650 mg PO NOW ONE Labs: Laboratory Tests 10/09/18 Range/Units 12:38 Urine Color Yellow Urine Appearance Cloudy Urine pH 5.0 (4.5-8.0) Ur Specific Kersey 1.020 (1.008-1.030) Urine Protein Trace (NEGATIVE) mg/dL Urine Glucose (UA) Normal (NEGATIVE) mg/dL Urine Ketones 50 H (NEGATIVE) mg/dL Urine Occult Blood Large (NEGATIVE) Urine Nitrite Negative (NEGAITVE) Urine Bilirubin Negative (NEGATIVE) Urine Urobilinogen Normal (NORMAL) mg/dL Ur Leukocyte Esterase Large (NEGATIVE) Urine RBC Packed H (0-5) Urine WBC 5-10 H (0-5) Ur Epithelial Cells Rare Amorphous Sediment Rare Urine Bacteria Moderate Urine Mucus Rare - Re-Assessments/Exams Free Text/Narrative Re-Assessment/Exam: 10/09/18 13:15 Patient was seen and examined shortly after arrival. Stable. Urine shows positive leukocyte esterase, urea and hematuria. Urine sent for culture. Patient denies any abdominal pain or flank pain. Started on Cipro. Advised to [place] urine tests in one week to ensure resolution of hematuria. If it didn't resolve he might need a CT abdomen and pelvis and cystoscopy. The patient and his significant other at the bedside his daughter seemed to understand. I did contacted our surgeon Dr. De La Paz to look at his chronic back wound and he stated that the patient can follow-up with him in a clinic sometime this week or next week. Patient agrees with the plan. No sign of sepsis or severe sepsis. Is hemodynamically stable. Blood pressure is normal. He is not tachycardic. Patient does not be admitted to the hospital. Patient agrees with the plan. Stable for discharge. Departure - Departure Time of Disposition: 13:17 Disposition: Home, Self-Care 01 Condition: Good Clinical Impression: UTI, Urinary tract infectious disease - Discharge Information Instructions: Urinary Tract Infection, Adult Referrals: PCP,None [Primary Care Provider] - Forms: ED Department Discharge Additional Instructions: Rest and stay well-hydrated. Close follow-up with PCP. Come back if symptom worsen. - My Orders Last 24 Hours: My Active Orders 10/09/18 13:06 CULTURE URINE [RM] Stat 10/09/18 13:19 Acetaminophen [Tylenol] 650 mg PO NOW ONE - Assessment/Plan Last 24 Hours: My Active Orders 10/09/18 13:06 CULTURE URINE [RM] Stat 10/09/18 13:19 Acetaminophen [Tylenol] 650 mg PO NOW ONE Plan: Rest and stay well-hydrated. Close follow-up with PCP. Come back if symptom worsen. Repeat UA in [address] abdomen and pelvis or cystoscopy if hematuria did not resolve.
[2018-10-09] MEDS ORDERED: Acetaminophen 325 MG Tab PO ONE (13:19)
[2018-10-09 13:33] VITALS: BP 154/77; PULSE 89
== END 2018-10-09 13:42 | disposition home or self-care (01) ==
LOC: JP.ED 12:17
DX: N39.0 Urinary tract infection, site not specified (principal); I10 Essential (primary) hypertension; J44.9 Chronic obstructive pulmonary disease, unspecified; F17.210 Nicotine dependence, cigarettes, uncomplicated; Z79.82 Long term (current) use of aspirin; Z79.899 Other long term (current) drug therapy
CPT/HCPCS: 81001; 87086; 87088; 87186; 99283; A9270